=== PATIENT | male | born 1955 | race Caucasian/White ===

== ENCOUNTER → 2017-09-10 | Outpatient (CLI) | payer OTHER ==
[~2017-09-10] VITALS: Ht 175.3 cm; Wt 83.0 kg
[~2017-09-10] MED LIST: ASPIRIN325 PO; CALCIUM 500 +1 EAC5 PO; CRESTOR40 MG PO; LASIX 40 MG TAB40 M2 PO; MULTIVITAMINS1 EAC7 PO; NORVASC5 MG PO; OMEGA-31000 M1 PO; POTASSIUM20 PO; PRILOSEC OTC20 MG PO
--- NOTE | ~2017-09-10 | P ---
[facility] [place] [address] PROCEDURE REPORT Name: MARTA DO LOR [facility] #: [facility] [id number] Admission: 09/10/17 Attend Phys: Nader Simmons MD Discharge: Date of : 51 Report #: [id number] THIS REPORT FOR: //name// CC: RAN ROBIN DO Ran Simmons BRIEF HISTORY: The patient is a 62-year-old male with history of colon adenomas. Also, family history of colon cancer in his father and maternal grandmother also had colon cancer. PREOPERATIVE DIAGNOSES: History of colon adenomas and family history of colon cancer. POSTOPERATIVE DIAGNOSES: 1. Multiple colon polyps. 2. Moderately severe left-sided diverticulosis coli. 3. Small internal hemorrhoids. MEDICATIONS: Deep sedation with propofol per anesthesia. SPECIMEN: 1. Hepatic flexure polyp. 2. Proximal ascending colon polyp. 3. Polyp, distal descending colon. 4. Polyp at 70 cm. 5. Polyp at 50 cm. 6. Polyp at 30 cm. ESTIMATED BLOOD LOSS: 3 mL. PROCEDURE: Colonoscopy to cecum and terminal ileum with snare polypectomy and biopsy. FINDINGS: Prior to propofol sedation, procedure of colonoscopy discussed with the patient as well as potential risks and its complications. He indicates he understands and desires to proceed. DESCRIPTION OF PROCEDURE: With the patient in left lateral decubitus position, digital examination was completed which revealed no abnormalities. Subsequently, the [employer] video colonoscope was introduced in the rectum, advanced under direct vision to the cecum. This was done with minimal difficulty. The cecum was identified by the ileocecal valve and the appendiceal orifice. I was able to visualize the distal segment of the terminal ileum, which was inspected and noted to be unremarkable. At that point, the scope was slowly withdrawn and careful circumferential views were obtained. Upon slow withdrawal of the scope, the prep was noted to be good. The mucosa was within normal limits, normal [facility] [address] [place] [address] PROCEDURE REPORT Name: MARTA DO Room #: REG [facility]#: [id number] Admission: 09/10/17 Attend Phys: Nader Simmons MD Discharge: Date of : 51 Report #: [id number] vascular pattern, normal light reflex. In the proximal ascending colon, a 5 mm sessile polyp was seen and removed by cold snare polypectomy and recovered. In the distal ascending colon, a flat 6-8 mm polyp was seen. This may be a serrated adenoma. It was removed by cold snare polypectomy. At the hepatic flexure, another 5 mm sessile polyp was removed by cold snare polypectomy. At 70 cm, a diminutive polyp was removed by biopsy and also diminutive polyps removed by biopsy at 50 cm. At 30 cm, a 5 mm flat polyp was seen on fold removed by cold snare polypectomy. Additional findings upon withdrawal of the scope included moderately severe diverticular disease in sigmoid colon without endoscopic evidence of diverticulitis. It is noted an occasional diverticulum is seen in the proximal colon as well. The scope was further withdrawn in the rectum, no abnormalities were seen. Upon retroflexion, small hemorrhoids were seen. Scope was withdrawn. The patient tolerated the procedure well. CONDITION OF THE PATIENT UPON DISCHARGE: Following procedure, the patient drowsy, aroused and conversant and will be discharged home when fully ambulatory. INSTRUCTIONS TO THE PATIENT AND FAMILY AT THE TIME OF DISCHARGE: The patient with multiple polyps removed by biopsy and cold snare polypectomy as noted. We will follow up on the path reports. If 3 or more are adenomatous or serrated adenomas, he should return in 3 years. If only 1 or 2, he should return in 3 years. Otherwise, he should return in 5 years for a colonoscopy. Also, suggest high fiber diet for his diverticular disease. Last colonoscopy was about 5 years ago. Withdrawal time from the cecum was 15 minutes 12 seconds. <ELECTRONICALLY SIGNED> By: Nader Simmons MD 09/14/17 1517 0820 22 Nader Simmons MD /nt
--- NOTE | ~2017-09-10 | EKG ---
[place] [address] [address] [place] [address] ELECTROCARDIOGRAM REPORT Name: MARTA DO [facility] #: [facility] [id number] Admission: 09/10/17 Attend Phys: Nader Simmons MD Discharge: Date of : 51 Report #: [id number] THIS REPORT FOR: //name// 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
== END | disposition home or self-care (01) ==
LOC: GI 06:31
DX: Z12.11 Encounter for screening for malignant neoplasm of colon (principal); D12.2 Benign neoplasm of ascending colon; D12.5 Benign neoplasm of sigmoid colon; Z86.010 Personal history of colon polyps; K63.5 Polyp of colon; K57.30 Diverticulosis of large intestine without perforation or abscess without bleeding; K64.8 Other hemorrhoids; I10 Essential (primary) hypertension; E78.00 Pure hypercholesterolemia, unspecified; K21.9 Gastro-esophageal reflux disease without esophagitis; Z98.890 Other specified postprocedural states; Z80.0 Family history of malignant neoplasm of digestive organs; Z87.891 Personal history of nicotine dependence; Z88.2 Allergy status to sulfonamides; Z79.899 Other long term (current) drug therapy; Z79.82 Long term (current) use of aspirin
CPT/HCPCS: 62110; 62900